=== PATIENT | male | born 1945 | race Caucasian/White ===

== ENCOUNTER 2024-04-29 17:39 | Inpatient (IN) | payer OTHER, BC ==
[2024-04-29] MEDS ORDERED: PIPERACILLIN/TAZOBACTAM 3.375 GM VIAL IVPB ONE (19:06)
[2024-04-29] MEDS ORDERED: ACETAMINOPHEN INJECTION 100 ML IVPB ONE (19:07)
[2024-04-29] MEDS ORDERED: VANCOMYCIN 1,000 MG VIAL (RESTRICTED TO ID ONLY) ONE (19:07)
[2024-04-29] MEDS: ACETAMINOPHEN 1000 MG/100 ML BAG IVPB ONE (20:36)
[2024-04-29 20:37] LABS: HEMATOCRIT 40.9 % (35.4-49); HEMOGLOBIN 13.4 G/dL (11.7-16.9); MCHC 32.8 g/dl (32.0-35.9); MEAN CELL VOLUME 97.6 fl (80-96); MEAN PLT VOLUME 9.7 fl (7.5-11.1); PLATELET COUNT 132.7 10^3/uL (134-434); RBC 4.19 10^6/uL (4.00-5.60); WHITE BLOOD COUNT 6.3 10^3/uL (4.0-10.8)
[2024-04-29] MEDS: PIPERACILLIN/TAZOB 3.375 GM 3.375 GM in DEXTROSE 5%-WATER - 50 ML IVPB ONE (20:47)
[2024-04-29 20:48] LABS: INR 1.23 (0.83-1.09); PROTHROMBIN TIME (PATIENT) 13.9 SEC (9.7-13.0)
[2024-04-29 20:50] LABS: ACTIVATED PTT 20.6 SECONDS (25.2-36.5)
[2024-04-29 21:00] LABS: ALBUMIN 3.1 g/dl (3.4-5.0); BILIRUBIN,TOTAL 0.7 mg/dl (0.2-1); CALCIUM 8.6 mg/dl (8.5-10.1); CREATININE 0.9 mg/dl (0.6-1.3); PHOSPHOROUS 2.7 (2.5-4.9); PLATELET ESTIMATE ADEQUATE; POTASSIUM 4.5 mmol/L (3.5-5.1); TOT PROT 5.4 g/dl (6.4-8.2)
[2024-04-29] MEDS: VANCOMYCIN 1,000 MG in DEXTROSE 5%-WATER - 250 ML IVPB ONE (21:30)
[2024-04-29] MEDS: SODIUM CHLORIDE 0.9% 500 ML INFUS.BAG IV ONE (21:31)
[2024-04-29 22:39] LABS: LACTIC ACID 2.8 mmol/L (0.4-2.0)
[2024-04-29 23:28] VITALS: BMI 15.7
[2024-04-30] MEDS: SODIUM CHLORIDE 500 ML IV STA (00:13)
[2024-04-30] MEDS: ACETAMINOPHEN 1000 MG/100 ML BAG IVPB PRN (06:41)
[2024-04-30 07:58] LABS: CALCIUM 8.4 mg/dl (8.5-10.1); CREATININE 0.8 mg/dl (0.6-1.3)
[2024-04-30 08:39] LABS: BASO % 0.1 % (0-2.0); EOS % 0.2 % (0-4.5); HEMATOCRIT 36.5 % (35.4-49); HEMOGLOBIN 12.3 GM/dL (11.7-16.9); LYMPH % 15.8 % (8-40); MCH 32.1 pg (25.7-33.7); MCHC 33.7 g/dl (32.0-35.9); MEAN CELL VOLUME 95.3 fl (80-96); MEAN PLT VOLUME 10.1 fl (7.5-11.1); MONO % 4.9 % (3.8-10.2); PLATELET COUNT 159 10^3/uL (134-434); RBC 3.83 M/mm3 (4.00-5.60); RDW 15.7 % (11.9-15.9); WHITE BLOOD COUNT 6.1 K/mm3 (4.0-10.0)
[2024-04-30] MEDS: SODIUM CHLORIDE 0.45% 1,000 ML IV SCH ×2 (10:18→19:48)
[2024-04-30] MEDS: PIPERACILLIN/TAZOB 4.5 GM 4.5 GM in DEXTROSE 5%-WATER 100 ML IVPB SCH (10:19)
[2024-04-30] MEDS: AMINO ACIDS 4.25%/D5W 1,000 ML IV SCH (15:36)
[2024-04-30] MEDS: PIPERACILLIN/TAZOB 3.375 GM 3.375 GM in DEXTROSE 5%-WATER - 50 ML IVPB SCH (19:03)
[2024-04-30] MEDS ORDERED: VANCOMYCIN 500 MG in DEXTROSE 5%-WATER 100 ML IVPB ONE (22:00)
[2024-05-01 08:06] LABS: ALBUMIN 2.9 g/dl (3.4-5.0); BILIRUBIN,TOTAL 0.5 mg/dl (0.2-1); CALCIUM 8.1 mg/dl (8.5-10.1); CREATININE 0.6 mg/dl (0.6-1.3)
[2024-05-01 10:00] LABS: BASO % 0.1 % (0-2.0); EOS % 0.6 % (0-4.5); HEMATOCRIT 36.3 % (35.4-49); HEMOGLOBIN 12.3 GM/dL (11.7-16.9); LYMPH % 9.3 % (8-40); MCH 31.6 pg (25.7-33.7); MEAN PLT VOLUME 9.8 fl (7.5-11.1); MONO % 6.8 % (3.8-10.2); NEUT % 83.2 % (42.8-82.8); PLATELET COUNT 175 10^3/uL (134-434); RBC 3.91 M/mm3 (4.00-5.60); RDW 15.4 % (11.9-15.9); WHITE BLOOD COUNT 6.1 K/mm3 (4.0-10.0)
[2024-05-01] MEDS ORDERED: PIPERACILLIN/TAZOB 4.5 GM 4.5 GM in DEXTROSE 5%-WATER 100 ML IVPB SCH (10:00)
[2024-05-01] MEDS: KCL 10 MEQ IVPB 10 MEQ/100 ML INFUS.BAG IVPB SCH ×2 (10:23→19:51)
[2024-05-01] MEDS: POTASSIUM CHLORIDE 20 MEQ in AMINO ACIDS 4.25%/D5W 1,000 ML IV SCH (10:30)
[2024-05-01] MEDS ORDERED: VANCOMYCIN 500 MG in DEXTROSE 5%-WATER - 100 ML IVPB SCH (22:00)
[2024-05-02 06:45] VITALS: RESP 18; TEMP 98.4
[2024-05-02 08:04] LABS: ALBUMIN 3.1 g/dl (3.4-5.0); BILIRUBIN,TOTAL 0.6 mg/dl (0.2-1); CALCIUM 8.2 mg/dl (8.5-10.1); CREATININE 0.6 mg/dl (0.6-1.3); MAGNESIUM 1.5 mg/dL (1.8-2.4); PHOSPHOROUS 1.7 (2.5-4.9); POTASSIUM 3.2 mmol/L (3.5-5.1); TOT PROT 5.4 g/dl (6.4-8.2)
[2024-05-02 09:39] LABS: BASO % 0.1 % (0-2.0); EOS % 0.7 % (0-4.5); HEMATOCRIT 38.5 % (35.4-49); HEMOGLOBIN 13.3 GM/dL (11.7-16.9); LYMPH % 5.8 % (8-40); MCHC 34.7 g/dl (32.0-35.9); MEAN CELL VOLUME 92.3 fl (80-96); MEAN PLT VOLUME 9.3 fl (7.5-11.1); MONO % 2.5 % (3.8-10.2); NEUT % 90.9 % (42.8-82.8); PLATELET COUNT 218 10^3/uL (134-434); RBC 4.17 M/mm3 (4.00-5.60); WHITE BLOOD COUNT 8.2 K/mm3 (4.0-10.0)
[2024-05-02 10:21] VITALS: BP 138/85; PULSE 81
== END 2024-05-02 13:13 | disposition hospice, inpatient (51) | DRG 871 ==
LOC: FER 17:39 → FM/S 17:46
PROVIDERS: ADMIT Internal Medicine
DX: A41.9 Sepsis, unspecified organism (principal); E43 Unspecified severe protein-calorie malnutrition; R53.2 Functional quadriplegia; J69.0 Pneumonitis due to inhalation of food and vomit; G12.21 Amyotrophic lateral sclerosis; E87.0 Hyperosmolality and hypernatremia; E87.20 Acidosis, unspecified; Z68.1 Body mass index [BMI] 19.9 or less, adult; R64 Cachexia; E86.0 Dehydration; R62.7 Adult failure to thrive
CPT/HCPCS: 0241U-QW; 36415; 71045-TC-FY; 73030-TC-LT-FY; 80048; 80053; 81003; 81015; 83605; 83735; 84100; 84484; 85025; 85027; 85610; 85730; 87040; 87086; 87899; 99285-25; J0131

== ENCOUNTER 2024-05-02 20:19 | Inpatient (IN) | payer OTHER, BC ==
[2024-05-02] MEDS ORDERED: PIPERACILLIN/TAZOBACTAM 4.5 GM VIAL IVPB ONE (20:40)
[2024-05-02] MEDS: PIPERACILLIN/TAZOB 4.5 GM 4.5 GM in DEXTROSE 5%-WATER 100 ML IVPB ONE (20:52)
[2024-05-02] MEDS: AMINO ACIDS 4.25%/D5W 1,000 ML IV SCH (23:26)
[2024-05-03] MEDS: PIPERACILLIN/TAZOB 3.375 GM 3.375 GM in DEXTROSE 5%-WATER - 50 ML IVPB SCH (02:05)
[2024-05-03] MEDS ORDERED: PIPERACILLIN/TAZOB 3.375 GM 3.375 GM in DEXTROSE 5%-WATER - 50 ML IVPB SCH (03:00)
[2024-05-03 08:48] LABS: CALCIUM 8.4 mg/dl (8.5-10.1); CREATININE 0.6 mg/dl (0.6-1.3); MAGNESIUM 1.7 mg/dL (1.8-2.4); POTASSIUM 3.1 mmol/L (3.5-5.1)
[2024-05-03] MEDS: KCL 10 MEQ IVPB 10 MEQ/100 ML INFUS.BAG IVPB SCH (13:42)
[2024-05-04] MEDS: PIPERACILLIN/TAZOB 3.375 GM 3.375 GM in DEXTROSE 5%-WATER - 50 ML IVPB ONE (02:49)
[2024-05-04] MEDS: ACETAMINOPHEN 1000 MG/100 ML BAG IVPB PRN (09:18)
[2024-05-04] MEDS: MAGNESIUM 1GM/D5W 100ML - 100 ML IVPB IVPB ONE (12:04)
[2024-05-04 13:18] VITALS: BMI 13.6
[2024-05-04] MEDS: PIPERACILLIN/TAZOB 3.375 GM 3.375 GM in DEXTROSE 5%-WATER - 50 ML IVPB SCH (17:21)
[2024-05-04] MEDS: BACITRACIN ZINC 15 GM TUBE TOPICAL OINTMENT TP SCH (17:22)
[2024-05-04] MEDS: KETOCONAZOLE 2% TOPICAL CREAM 15 GM TUBE TP SCH (17:22)
[2024-05-04] MEDS: POTASSIUM PHOSPHATE 15 MM in DEXTROSE 5%-WATER - 250 ML IVPB ONE (21:50)
[2024-05-05 09:05] LABS: ALBUMIN 2.9 g/dl (3.4-5.0); BILIRUBIN,TOTAL 0.4 mg/dl (0.2-1); CREATININE 0.4 mg/dl (0.6-1.3); PHOSPHOROUS 2.7 (2.5-4.9); POTASSIUM 3.3 mmol/L (3.5-5.1); TOT PROT 5.2 g/dl (6.4-8.2)
[2024-05-05 09:29] LABS: BASO % 0.1 % (0-2.0); EOS % 3.2 % (0-4.5); HEMATOCRIT 36.2 % (35.4-49); HEMOGLOBIN 12.9 GM/dL (11.7-16.9); LYMPH % 10.6 % (8-40); MCH 32.2 pg (25.7-33.7); MCHC 35.5 g/dl (32.0-35.9); MEAN CELL VOLUME 90.6 fl (80-96); MEAN PLT VOLUME 8.6 fl (7.5-11.1); MONO % 5.8 % (3.8-10.2); NEUT % 80.3 % (42.8-82.8); PLATELET COUNT 319 10^3/uL (134-434); RDW 14.6 % (11.9-15.9); WHITE BLOOD COUNT 5.6 K/mm3 (4.0-10.0)
[2024-05-05] MEDS: KCL 10 MEQ IVPB 10 MEQ/100 ML INFUS.BAG IVPB SCH (09:38)
[2024-05-06] MEDS: FLUCONAZOLE 200 MG/NS 100 ML IVPB ONE (18:09)
[2024-05-07 06:35] VITALS: PULSE 83; RESP 18
[2024-05-07] MEDS: ENOXAPARIN NA (PORCINE) 30 MG/0.3 ML DISP.SYRIN SQ SCH (10:39)
[2024-05-07] MEDS: FLUCONAZOLE 100 MG/NS 50 ML IVPB SCH (10:40)
[2024-05-07 12:29] VITALS: BP 110/72; TEMP 97
[2024-05-07] MEDS: NYSTATIN 500,000 UNITS/5 ML SUSPENSION PO SCH (14:06)
== END 2024-05-07 14:48 | disposition home or self-care (01) | DRG 56 ==
LOC: FER 20:19 → FM/S 22:44
PROVIDERS: ADMIT Internal Medicine; ATTEND Internal Medicine
DX: G12.21 Amyotrophic lateral sclerosis (principal); E43 Unspecified severe protein-calorie malnutrition; J69.0 Pneumonitis due to inhalation of food and vomit; R53.2 Functional quadriplegia; J96.12 Chronic respiratory failure with hypercapnia; J96.11 Chronic respiratory failure with hypoxia; Z68.1 Body mass index [BMI] 19.9 or less, adult; R64 Cachexia; B37.0 Candidal stomatitis; R13.10 Dysphagia, unspecified; E86.0 Dehydration; E87.6 Hypokalemia; E87.8 Other disorders of electrolyte and fluid balance, not elsewhere classified; E83.39 Other disorders of phosphorus metabolism; E83.42 Hypomagnesemia; Z71.89 Other specified counseling
CPT/HCPCS: 36415; 80048; 80053; 83735; 84100; 85025; 99285-25; E0186; J0131